=== PATIENT | male | born 2000 | race Hispanic/Latino ===

== ENCOUNTER → 2023-09-19 | Outpatient (CLI) | payer OTHER | LOC: M RAD 18:00 | PROVIDERS: ATTEND Physician Assistant | DX: S20.213A Contusion of bilateral front wall of thorax, initial encounter (principal); W18.30XA Fall on same level, unspecified, initial encounter; Y92.009 Unspecified place in unspecified non-institutional (private) residence as the place of occurrence of the external cause ==